=== PATIENT | male | born 1945 | race Caucasian/White ===

== ENCOUNTER 2018-02-08 06:56 | Inpatient (IN) | payer MEDICARE ==
[~2018-02-08] VITALS: Ht 182.9 cm; Wt 89.6 kg
[2018-02-08] MEDS ORDERED: VERAPAMIL 2.5 MG/ML, 2ML ONE (07:07)
[2018-02-08] MEDS ORDERED: BIVALIRUDIN 250 MG ONE (07:07)
[2018-02-08] MEDS ORDERED: NITROGLYCERIN 5 MG/ML, 10ML ONE (07:07)
[2018-02-08] MEDS ORDERED: MIDAZOLAM 1 MG/ML, 5ML ONE (07:07)
[2018-02-08] MEDS ORDERED: TICAGRELOR 90 MG TABLET ONE (07:07)
[2018-02-08] MEDS ORDERED: HEPARIN 1,000 UNITS/ML, 10ML ONE (07:07)
[2018-02-08] MEDS ORDERED: FENTANYL PF 100 MCG/2ML ONE (07:07)
[2018-02-08] MEDS ORDERED: LIDOCAINE-MPF 2% ,5ML ONE (07:07)
[2018-02-08 07:22] LABS: MEAN CORPUSCULAR HEMOGLOBIN 32.9 pg (27.5-34.5); MEAN CORPUSCULAR HGB CONC 33.7 g/dL (33.2-36.2); MEAN CORPUSCULAR VOLUME 97.4 fL (81-97); PLATELET COUNT 114 x10^3/uL (130-400); RED BLOOD COUNT 4.58 x10^6/uL (4.38-5.82); RED CELL DISTRIBUTION WIDTH 15.6 % (9.4-14.8)
[2018-02-08] MEDS ORDERED: ATORVASTATIN 80 MG TABLET PO ONE (07:30)
[2018-02-08 07:38] LABS: INTERNATIONAL NORMALIZED RATIO 1.13 (0.93-1.1); PROTHROMBIN TIME 11.6 Seconds (9.6-11.5)
[2018-02-08 07:50] LABS: MD YES
[2018-02-08 07:51] LABS: LYMPHS% (MANUAL) 91 % (22-44); MONOS#(MANUAL) 0.42 x10^3/uL (0.3-2.7); MONOS% (MANUAL) 1 % (2-9); SEG#(MANUAL) 3.38 x10^3/uL (1.8-6.8); SEGS% (MANUAL) 8 % (42-75)
[2018-02-08 07:53] LABS: <PLATELET ESTIMATE> DECREASED; <PLT MORPHOLOGY> NORMAL PLT MORPH; ANISOCYTOSIS 1+
[2018-02-08 07:54] LABS: SMUDGE CELLS 2+
[2018-02-08] MEDS: SODIUM CHLORIDE 0.9% 1,000 ML IV SCH ×2 (09:00→16:08)
[2018-02-08] MEDS ORDERED: LISINOPRIL 5 MG TABLET PO SCH (09:00)
[2018-02-08] MEDS: ASPIRIN 81 MG TABLET EC PO SCH (10:44)
[2018-02-08] MEDS: TICAGRELOR 90 MG TABLET PO SCH ×2 (10:45→21:58)
[2018-02-08] MEDS: ATORVASTATIN 80 MG TABLET PO SCH ×2 (10:46→21:58)
[2018-02-08 11:41] LABS: MICROSCOPIC INDICATED
[2018-02-08 11:48] LABS: CULTURE INDICATED? NO
[2018-02-08] MEDS ORDERED: ACETAMINOPHEN 325 MG TABLET PO PRN (14:00)
[2018-02-08] MEDS ORDERED: hydrALAzine 20 MG/ML, 1ML IV PRN (14:00)
[2018-02-08 16:16] LABS: INTERNATIONAL NORMALIZED RATIO 1.15 (0.93-1.1); PROTHROMBIN TIME 11.8 Seconds (9.6-11.5)
[2018-02-08] MEDS ORDERED: METOPROLOL TARTRATE 25 MG TABLET PO SCH (18:00)
[2018-02-08] MEDS: METOPROLOL TARTRATE 25 MG TABLET PO SCH (18:40)
[2018-02-08] MEDS: LISINOPRIL 10 MG TABLET PO SCH (21:00)
[2018-02-09] MEDS: SODIUM CHLORIDE 0.9% 1,000 ML IV SCH ×4 (00:09→21:22)
[2018-02-09 04:33] VITALS: BP 115/55
[2018-02-09 05:02] LABS: ALANINE AMINOTRANSFERASE 36 U/L (12-78); ALBUMIN 3.1 g/dL (3.4-5.0); ANION GAP 7 mmol/L (5-15); CHLORIDE 113 mmol/L (98-107)
[2018-02-09 05:06] LABS: ALKALINE PHOSPHATASE 56 U/L (45-117); CHOLESTEROL, TOTAL 193 mg/dL (140-239); HDL CHOLESTEROL (DIRECT) 28 mg/dL (40-60); TOTAL PROTEIN 5.3 g/dL (6.4-8.2); TRIGLYCERIDES 92 mg/dL (50-200); VLDL CHOLESTEROL 18 mg/dL (0-25)
[2018-02-09 05:07] LABS: CHOL/HDL RATIO 6.9; HDL CHOL % 15 % (26-37); LDL CHOLESTEROL,CALCULATED 147 mg/dL (54-169); LDL/HDL RATIO 5.3 (0.5-3.0)
[2018-02-09 05:11] LABS: INTERNATIONAL NORMALIZED RATIO 1.15 (0.93-1.1); PROTHROMBIN TIME 11.8 Seconds (9.6-11.5)
[2018-02-09] MEDS: METOPROLOL TARTRATE 25 MG TABLET PO SCH ×2 (06:00→18:37)
[2018-02-09] MEDS: ASPIRIN 81 MG TABLET EC PO SCH (08:22)
[2018-02-09] MEDS: CLOPIDOGREL 75 MG TABLET PO SCH (08:22)
[2018-02-09] MEDS: LISINOPRIL 10 MG TABLET PO SCH (08:23)
[2018-02-09] MEDS ORDERED: MIDAZOLAM 1 MG/ML, 5ML ONE (12:23)
[2018-02-09] MEDS ORDERED: FENTANYL PF 100 MCG/2ML ONE (12:23)
[2018-02-09] MEDS ORDERED: BIVALIRUDIN 250 MG ONE (12:23)
[2018-02-09] MEDS ORDERED: VERAPAMIL 2.5 MG/ML, 2ML ONE (12:23)
[2018-02-09 19:58] VITALS: BP 122/59
[2018-02-09] MEDS: LISINOPRIL 5 MG TABLET PO SCH (21:00)
[2018-02-09 21:47] VITALS: BP 105/63
[2018-02-09] MEDS: ATORVASTATIN 80 MG TABLET PO SCH (21:48)
[2018-02-10 03:19] VITALS: BP 102/61
[2018-02-10] MEDS: SODIUM CHLORIDE 0.9% 1,000 ML IV SCH (05:22)
[2018-02-10] MEDS: METOPROLOL TARTRATE 25 MG TABLET PO SCH (06:00)
[2018-02-10 06:04] LABS: MEAN CORPUSCULAR HEMOGLOBIN 32.8 pg (27.5-34.5); MEAN CORPUSCULAR HGB CONC 33.7 g/dL (33.2-36.2); MEAN CORPUSCULAR VOLUME 97.2 fL (81-97); MEAN PLATELET VOLUME 7.3 fL (7.4-10.4); PLATELET COUNT 110 x10^3/uL (130-400); RED BLOOD COUNT 3.98 x10^6/uL (4.38-5.82); RED CELL DISTRIBUTION WIDTH 15.6 % (9.4-14.8)
[2018-02-10 06:05] VITALS: BP 120/69
[2018-02-10 06:07] LABS: CHLORIDE 115 mmol/L (98-107)
[2018-02-10 06:15] LABS: ALANINE AMINOTRANSFERASE 28 U/L (12-78); ALBUMIN 3.1 g/dL (3.4-5.0); ALKALINE PHOSPHATASE 56 U/L (45-117); ANION GAP 4 mmol/L (5-15); BILIRUBIN,TOTAL 1.4 mg/dL (0.2-1.0); CALCIUM 8.3 mg/dL (8.5-10.1); CREATININE 1.17 mg/dL (0.7-1.3); TOTAL PROTEIN 5.5 g/dL (6.4-8.2)
[2018-02-10 06:35] LABS: MD YES
[2018-02-10 06:37] LABS: <PLATELET ESTIMATE> DECREASED; ANISOCYTOSIS 1+; LYMPHS% (MANUAL) 83 % (22-44); MONOS#(MANUAL) 0.27 x10^3/uL (0.3-2.7); MONOS% (MANUAL) 1 % (2-9); SEG#(MANUAL) 4.24 x10^3/uL (1.8-6.8); SEGS% (MANUAL) 16 % (42-75)
[2018-02-10 06:38] LABS: SMALL PLATELETS 1+
[2018-02-10 07:48] VITALS: BP 118/70
[2018-02-10] MEDS: LISINOPRIL 5 MG TABLET PO SCH (09:06)
[2018-02-10] MEDS: ASPIRIN 81 MG TABLET EC PO SCH (09:07)
[2018-02-10] MEDS: CLOPIDOGREL 75 MG TABLET PO SCH (09:07)
[2018-02-10] MEDS ORDERED: ATOR-2 PO (11:07)
[2018-02-10] MEDS ORDERED: LISI5TAB7 PO (11:07)
[2018-02-10] MEDS ORDERED: ASPI-621 PO (11:07)
[2018-02-10] MEDS ORDERED: CLOP75TA PO (11:07)
[2018-02-10] MEDS ORDERED: CARV6.2512 PO (11:07)
[2018-02-10] MEDS ORDERED: CARVEDILOL 6.25 MG TABLET PO SCH (18:00)
[2018-02-11] MEDS ORDERED: LISINOPRIL 5 MG TABLET PO SCH (09:00)
== END 2018-02-10 13:02 | disposition home or self-care (01) | DRG 247 ==
LOC: ED 07:10 → EDIP 07:11 → ED 07:25 → CCU 07:53 → 5SO 02-09 17:59 → DCLOUNGE 02-10 12:30
PROVIDERS: ADMIT Internal Medicine Cardiovascular Disease; ATTEND Internal Medicine Cardiovascular Disease
PROC: 027034Z Dilation of Coronary Artery, One Artery with Drug-eluting Intraluminal Device, Percutaneous Approach (ICD-10-PCS; principal; 2018-02-08)
PROC: 4A023N7 Measurement of Cardiac Sampling and Pressure, Left Heart, Percutaneous Approach (ICD-10-PCS; 2018-02-08)
PROC: 4A023N7 Measurement of Cardiac Sampling and Pressure, Left Heart, Percutaneous Approach (ICD-10-PCS; 2018-02-08)
PROC: B2111ZZ Fluoroscopy of Multiple Coronary Arteries using Low Osmolar Contrast (ICD-10-PCS; 2018-02-08)
PROC: B2151ZZ Fluoroscopy of Left Heart using Low Osmolar Contrast (ICD-10-PCS; 2018-02-08)
PROC: 027034Z Dilation of Coronary Artery, One Artery with Drug-eluting Intraluminal Device, Percutaneous Approach (ICD-10-PCS; 2018-02-09)
PROC: 4A023N7 Measurement of Cardiac Sampling and Pressure, Left Heart, Percutaneous Approach (ICD-10-PCS; 2018-02-09)
PROC: B2111ZZ Fluoroscopy of Multiple Coronary Arteries using Low Osmolar Contrast (ICD-10-PCS; 2018-02-09)
DX: I21.19 ST elevation (STEMI) myocardial infarction involving other coronary artery of inferior wall (principal); C91.10 Chronic lymphocytic leukemia of B-cell type not having achieved remission; I25.10 Atherosclerotic heart disease of native coronary artery without angina pectoris; I10 Essential (primary) hypertension; E78.5 Hyperlipidemia, unspecified; I34.0 Nonrheumatic mitral (valve) insufficiency; D69.6 Thrombocytopenia, unspecified; R00.1 Bradycardia, unspecified; Z72.89 Other problems related to lifestyle; Z90.49 Acquired absence of other specified parts of digestive tract
CPT/HCPCS: 36415; 71045; 80047; 80053; 80061; 81001; 83605; 83615; 83735; 84484; 84550; 85014; 85018; 85025; 85610; 85730; 87081; 93005; 93306; 93458; 99156; 99157; 99285; C1769; C1894; C9600; G0378; J0583; J1644; J2250; J3010; J3490; C1725; C1874; C1887; J7030; Q9967

== ENCOUNTER → 2018-02-26 | Outpatient (CLI) | payer MEDICARE ==
[~2018-02-26] MED LIST: ASPI-621 PO; ATOR-2 PO; CARV6.2512 PO; CLOP75TA PO; LISI5TAB7 PO
== END | disposition home or self-care (01) ==
LOC: CVU 07:47
PROVIDERS: ATTEND Internal Medicine Cardiovascular Disease
DX: I65.23 Occlusion and stenosis of bilateral carotid arteries (principal); I25.10 Atherosclerotic heart disease of native coronary artery without angina pectoris; I10 Essential (primary) hypertension
CPT/HCPCS: 93880

== ENCOUNTER → 2019-08-16 | Outpatient (CLI) | payer MEDICARE ==
[~2019-08-16] MED LIST changes: -ASPI-621 PO; +ASPI81TA45 PO
== END | disposition home or self-care (01) ==
LOC: RAD 08:51
PROVIDERS: ATTEND Specialist
DX: C91.10 Chronic lymphocytic leukemia of B-cell type not having achieved remission (principal); N28.1 Cyst of kidney, acquired; R16.1 Splenomegaly, not elsewhere classified; R59.1 Generalized enlarged lymph nodes
CPT/HCPCS: 76700

== ENCOUNTER 2020-06-22 07:11 | Emergency (ER) | payer MEDICARE ==
[~2020-06-22] VITALS: Ht 182.9 cm; Wt 83.5 kg
--- NOTE | 2020-06-22 07:58 | NUR ---
PT. IS A & O X 4 WITH A [employer] OF 15. PT. HAS KNOWN COVID AND IS HERE FOR FURTHER EVALUATION. HE REPORTS SYMPTOMS ARE MILD. PT.'S LUNGS ARE CTA THROUGHOUT. HIS RESPIRATIONS ARE EUPNEIC WITH HIS ROOM AIR SATS AT 96%. PT. IS RESTING ON THE GURNEY WITH THE CALL LIGHT IN PLACE, NO CONCERNS AT THIS TIME.
[2020-06-22] MEDS ORDERED: FILTER 0.22 MICRON IV ONE (08:30)
[2020-06-22] MEDS ORDERED: BAMLANIVIMAB 700 MG in SODIUM CHLORIDE 0.9% 250 ML IVPB ONE (08:30)
[2020-06-22 08:44] LABS: MEAN CORPUSCULAR HEMOGLOBIN 32.7 pg (27.5-34.5); MEAN PLATELET VOLUME 7.2 fL (7.4-10.4); PLATELET COUNT 125 x10^3/uL (130-400); RED BLOOD COUNT 3.62 x10^6/uL (4.38-5.82); RED CELL DISTRIBUTION WIDTH 16.4 % (9.4-14.8)
[2020-06-22 09:02] LABS: CHLORIDE 108 mmol/L (98-107)
[2020-06-22 09:06] LABS: ALBUMIN 3.5 g/dL (3.4-5.0); ANION GAP 8 mmol/L (5-15); CALCIUM 8.2 mg/dL (8.5-10.1)
[2020-06-22 09:09] LABS: MD YES
[2020-06-22 09:10] LABS: ALANINE AMINOTRANSFERASE 19 U/L (12-78); ALKALINE PHOSPHATASE 78 U/L (45-117); BILIRUBIN,TOTAL 1.4 mg/dL (0.2-1.0); CREATININE 1.35 mg/dL (0.7-1.3); TOTAL PROTEIN 6.2 g/dL (6.4-8.2)
[2020-06-22 09:12] LABS: LYMPH#(MANUAL) 113.34 x10^3/uL (1-3.4); LYMPHS% (MANUAL) 95 % (22-44); SEG#(MANUAL) 5.97 x10^3/uL (1.8-6.8); SEGS% (MANUAL) 5 % (42-75)
[2020-06-22 09:13] LABS: <PLATELET ESTIMATE> DECREASED; <PLT MORPHOLOGY> NORMAL PLT MORPH; ANISOCYTOSIS 1+; OVALOCYTES 1+
--- NOTE | 2020-06-22 09:19 | NUR ---
PT. WAS GIVEN MEDICATION INFORMATION. PT.'S IV MEDICATIONS ARE INFUSING ON THE PUMP. VSS. PT. IS RESTING WITHOUT CONCERNS.
--- NOTE | 2020-06-22 09:20 | NUR ---
MD AWARE OF PT.'S WBC COUNT. PT. HAS A KNOWN HX OF CLL.
--- NOTE | 2020-06-22 10:24 | NUR ---
THE PT.'S INFUSION COMPLETED. PT. IS RESTING WITHOUT CONCERNS AT THIS TIME.
--- NOTE | 2020-06-22 11:56 | NUR ---
THE PT. WAS GIVEN DISCHARGE INSTRUCTIONS AND A SCRIPT. UNDERSTANDING WAS VERBALIZED ALOND WITH WILLINGNESS TO COMPLY. THE PT. WAS AMBULATORY WITH A STEADY GAIT TO THE DISCHARGE DESK. VSS. Addendum: 06/22/20 at 1157 by XIAO ARLETH CENTENO
[2020-06-22 11:58] VITALS: BP 106/68
[2020-06-23] MEDS ORDERED: ZINC220C7 PO (13:27)
[2020-06-23] MEDS ORDERED: ASCO500T9 PO (13:27)
[2020-06-23] MEDS ORDERED: CHOL500045 PO (13:27)
== END 2020-06-22 12:01 | disposition home or self-care (01) ==
LOC: ED 07:27
DX: U07.1 COVID-19 (principal); R06.02 Shortness of breath; R05 Cough; R51.9 Headache, unspecified; I25.2 Old myocardial infarction; I25.10 Atherosclerotic heart disease of native coronary artery without angina pectoris; E78.5 Hyperlipidemia, unspecified; I10 Essential (primary) hypertension; Z88.1 Allergy status to other antibiotic agents; Z79.899 Other long term (current) drug therapy
CPT/HCPCS: 36415; 71045; 80053; 85025; 93005; 99285; J7050; M0239; Q0239

== ENCOUNTER → 2021-01-09 | Outpatient (CLI) | payer MEDICARE ==
[~2021-01-09] MED LIST changes: +ASCO500T9 PO; +CHOL500045 PO; +DEXA6TAB6 PO; +DOXY100C2 PO; +ZINC220C7 PO
== END | disposition home or self-care (01) ==
LOC: CFH 08:57
PROVIDERS: ATTEND Specialist
DX: C91.10 Chronic lymphocytic leukemia of B-cell type not having achieved remission (principal); C44.92 Squamous cell carcinoma of skin, unspecified; E80.7 Disorder of bilirubin metabolism, unspecified; R16.1 Splenomegaly, not elsewhere classified; N28.1 Cyst of kidney, acquired
CPT/HCPCS: 76700